=== PATIENT | female | born 1990 | race American Indian/Alaskan Native ===

== ENCOUNTER 2020-09-08 22:32 | Emergency (ER) | payer SELFPAY ==
[2020-09-08 23:10] VITALS: BP 150/91
[2020-09-09] MEDS ORDERED: predniSONE 20 MG TAB PO ONE (00:01)
[2020-09-09] MEDS ORDERED: KETOROLAC 30 MG/1 ML INJ IM ONE (00:01)
[2020-09-09] MEDS ORDERED: BUTALB/ACETAMINOPHEN/CAFFEINE TAB PO ONE (00:01)
[2020-09-09] MEDS ORDERED: ONDANSETRON 4 MG ODT TAB PO ONE (00:02)
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
== END 2020-09-09 01:05 | disposition home or self-care (01) ==
LOC: ED 22:32
DX: M54.2 Cervicalgia (principal); R51.9 Headache, unspecified; Z88.0 Allergy status to penicillin; Z79.899 Other long term (current) drug therapy
CPT/HCPCS: 96372; 99282; J1885; J7512; Q0162

== ENCOUNTER 2020-10-03 05:28 | Emergency (ER) | payer SELFPAY | END 2020-10-03 06:25 | disposition left against medical advice (07) | LOC: ED 05:28 | DX: H92.09 Otalgia, unspecified ear (principal); Z53.21 Procedure and treatment not carried out due to patient leaving prior to being seen by health care provider ==